=== PATIENT | male | born 1970 | race Caucasian/White ===

== ENCOUNTER 2021-12-07 22:50 | Emergency (ER) | payer OTHER ==
[~2021-12-07] VITALS: Ht 170.2 cm; Wt 59.0 kg
[2021-12-07 22:58] VITALS: BP_SYST 126
[2021-12-08] MEDS ORDERED: MORPHINE 4 MG INJ. 4 MG/ML VIAL IVP ONE (00:45)
[2021-12-08] MEDS ORDERED: NACL 0.9% 500 ML IV ONE (00:45)
[2021-12-08] MEDS ORDERED: ONDANSETRON HCL 4 MG/2 ML VIAL IVP ONE (00:45)
[2021-12-08] MEDS ORDERED: KETOROLAC TROMETHAMINE 30 MG VIAL IVP ONE (00:45)
--- NOTE | 2021-12-08 01:04 | NUR ---
# 20 gauge angiocath placed to . Use of asceptic technique. Opsite placed over site. Blood return noted. Blood for lab drawn from site. Flushed with 10 cc of normal saline. No evidence of infiltration noted. Patient tolerated well.
[2021-12-08 01:12] LABS: BASOPHILS # (AUTO) 0.2 K/uL (0.0-0.2); BASOPHILS % (AUTO) 2.3 % (0.0-2.0); EOSINOPHILS # (AUTO) 0.1 K/uL (0.0-0.4); HEMATOCRIT 46.5 % (36-54); HEMOGLOBIN 16.3 g/dL (14.0-18.0); LYMPHOCYTES # (AUTO) 1.3 K/uL (1.0-5.5); LYMPHOCYTES % (AUTO) 12.3 % (20.5-51.5); MEAN CORPUSCULAR HEMOGLOBIN 35 pg (27-31); MEAN CORPUSCULAR HGB CONC 35 % (32-36); MEAN CORPUSCULAR VOLUME 99 fL (79.0-98.0); MONOCYTES # (AUTO) 0.5 K/uL (0.0-1.0); MONOCYTES % (AUTO) 5.2 % (1.7-9.3); NEUTROPHILS # (AUTO) 8.2 K/uL (1.8-7.7); NEUTROPHILS % (AUTO) 79.2 % (40.0-70.0); PLATELET COUNT (AUTO) 281 K/uL (130-430); RED BLOOD CELL COUNT(AUTO) 4.71 MIL/uL (4.2-6.2); RED CELL DISTRIBUTION WIDTH 13.1 % (9.0-15.0); WHITE BLOOD COUNT (AUTO) 10.4 K/uL (4.8-10.8)
[2021-12-08 01:21] LABS: CALCIUM 8.4 mg/dL (8.4-11.0); CREATININE 0.91 mg/dL (0.55-1.30); POTASSIUM 3.6 mmol/L (3.5-5.1)
[2021-12-08 01:27] LABS: TOTAL BILIRUBIN 0.7 mg/dL (0.0-1.0)
--- NOTE | 2021-12-08 01:28 | NUR ---
PT PRESENTED TO THE ER DRIVEN BY SON. PT FEEL BACK ONTO A DOOR KNOB, HITTING THE DOOR KNOB WITH LOWER BACK. PT VS ARE WITHIN NORMAL LIMITS, DENIES ANY SOB, HEADACHE, DENIES NUMBNESS IN LOWER AND UPPER EXTREMETIES, HAS FULL RANGE OF MOTION IN ALL FOUR EXTREMETIES. PT IS AOX4. PT IS IN BED WITH BED LOWERED, LOCKED, AND RAILS UP
[2021-12-08] MEDS ORDERED: HYDR-3917 PO ×3 (02:18→03:28)
[2021-12-08] MEDS ORDERED: IBUP-1969 PO ×3 (02:18→03:28)
[2021-12-08 05:09] VITALS: BP_SYST 141
== END 2021-12-08 05:09 | disposition home or self-care (01) ==
LOC: SED 22:50
DX: S22.42XA Multiple fractures of ribs, left side, initial encounter for closed fracture (principal); R07.89 Other chest pain; F17.200 Nicotine dependence, unspecified, uncomplicated; X58.XXXA Exposure to other specified factors, initial encounter; Y93.89 Activity, other specified; Y92.89 Other specified places as the place of occurrence of the external cause; Y99.8 Other external cause status
CPT/HCPCS: 36415; 71046; 71100; 80053; 85025; 94010; 96361; 96374; 96375; 99284; J1885; J2270; J2405; J7030

== ENCOUNTER 2022-03-27 15:54 | Inpatient (IN) | payer OTHER ==
[~2022-03-27] VITALS: Ht 167.6 cm; Wt 56.7 kg
[~2022-03-27 15:54] MED LIST: HYDR-3917 PO; IBUP-1969 PO
[2022-03-27 16:10] VITALS: BP_SYST 161
--- NOTE | 2022-03-27 16:10 | NUR ---
Patient triaged and placed in waiting room. VSS and patient appears in no acute distress at this time. Accompanied by SELF, awaiting available bed, and MD notified of need for MSE.
[2022-03-27 17:06] LABS: BASOPHILS # (AUTO) 0.1 K/uL (0.0-0.2); BASOPHILS % (AUTO) 1.2 % (0.0-2.0); EOSINOPHILS % (AUTO) 0.1 % (0.0-4.0); HEMATOCRIT 44.6 % (36-54); HEMOGLOBIN 16.1 g/dL (14.0-18.0); LYMPHOCYTES # (AUTO) 1.4 K/uL (1.0-5.5); LYMPHOCYTES % (AUTO) 15.8 % (20.5-51.5); MEAN CORPUSCULAR HEMOGLOBIN 35 pg (27-31); MEAN CORPUSCULAR HGB CONC 36 % (32-36); MEAN CORPUSCULAR VOLUME 96 fL (79.0-98.0); MONOCYTES # (AUTO) 0.8 K/uL (0.0-1.0); MONOCYTES % (AUTO) 8.8 % (1.7-9.3); NEUTROPHILS # (AUTO) 6.4 K/uL (1.8-7.7); NEUTROPHILS % (AUTO) 74.1 % (40.0-70.0); PLATELET COUNT (AUTO) 272 K/uL (130-430); RED BLOOD CELL COUNT(AUTO) 4.63 MIL/uL (4.2-6.2); RED CELL DISTRIBUTION WIDTH 13.3 % (9.0-15.0); WHITE BLOOD COUNT (AUTO) 8.7 K/uL (4.8-10.8)
[2022-03-27 17:37] LABS: CALCIUM 7.6 mg/dL (8.4-11.0); CREATININE 1.12 mg/dL (0.55-1.30)
[2022-03-27 18:13] LABS: ALBUMIN 2.8 g/dL (3.4-4.8); TOTAL BILIRUBIN 1.5 mg/dL (0.0-1.0)
--- NOTE | 2022-03-27 21:05 | NUR ---
URINE WALKED TO LAB
--- NOTE | 2022-03-27 21:10 | NUR ---
BIBS FROM HOME WITH C/O OF ABDOMINAL PAIN X 3 DAYS WITH CONSTIPATION, NAUSEA AND VOMITING. LAST BM TODAY, STOOL HARD.
[2022-03-27] MEDS ORDERED: NACL 0.9% 1,000 ML IV ONE (21:15)
[2022-03-27 21:37] LABS: BILIRUBIN,URINE NEGATIVE (NEGATIVE); BLOOD, URINE NEGATIVE (NEGATIVE); CLARITY/URINE CLEAR (CLEAR); COLOR,URINE YELLOW (YELLOW); GLUCOSE,URINE NEGATIVE (NEGATIVE); KETONES,URINE TRACE (NEGATIVE); LEUKOCYTE ESTERASE ,URINE NEGATIVE (NEGATIVE); NITRITE, URINE NEGATIVE (NEGATIVE); PROTEIN URINE TRACE (NEGATIVE); UROBILINOGEN,URINE 0.2 (0.2-1.0)
[2022-03-27 21:58] LABS: BACTERIA,URINE None Seen /HPF (None Seen); MUCUS,URINE 1+ /LPF (None Seen); RBC,URINE 0-3 /HPF (0-3); WBC,URINE 0-3 /HPF (0-3)
[2022-03-27] MEDS ORDERED: PANTOPRAZOLE SODIUM 40 MG/VIAL (PROTONIX) IVP ONE (23:00)
[2022-03-27] MEDS ORDERED: PIPERACILLIN/TAZO 3.375 GM in NS 50 ML IV ONE (23:00)
[2022-03-27] MEDS ORDERED: MORPHINE 4 MG INJ. 4 MG/ML VIAL IVP ONE (23:00)
[2022-03-27] MEDS ORDERED: PIPERACILLIN/TAZOBACTAM 3.375 GM/VIAL (ZOSYN) IV ONE (23:41)
--- NOTE | 2022-03-28 00:15 | NUR ---
ULTRASOUND AT BEDSIDE
[2022-03-28] MEDS ORDERED: MORPHINE 2 MG/ML INJ. SYRINGE IVP PRN ×3 (01:00→07:45)
[2022-03-28] MEDS ORDERED: ONDANSETRON HCL 4 MG/2 ML VIAL IVP PRN ×2 (01:00→07:45)
[2022-03-28] MEDS: NACL 0.9% 1,000 ML IV SCH ×3 (01:10→21:59)
--- NOTE | 2022-03-28 01:51 | NUR ---
Patient will be admitted to care of DR. FLEMING. Admitted to MED SURG unit. Will go to room 107A. Belongings list completed. Complete and up to date summary report printed. SBAR report to be given at bedside with opportunity for questions.
--- NOTE | 2022-03-28 02:35 | NUR ---
pt admitted to med surg. pt aox4 able to make needs known. rr even and unlabored on ra. Pt ambulatory with brp. Skin intact. iv in LAC 22g SL. pt denies pain at this time. pt Currently npo. Bowel sounds active. Pt currently denies a hospital gown. Pt educated to use call light if he needs assistance. Will continue to monitor.
[2022-03-28 03:07] VITALS: BP_SYST 155
[2022-03-28] MEDS ORDERED: NALOXONE HCL 0.4 MG/ML AMP (NARCAN) IVP PRN ×2 (07:45)
[2022-03-28] MEDS ORDERED: POTASSIUM CHLORIDE 20 MEQ TAB.PRT.SR PO PRN (07:45)
[2022-03-28] MEDS ORDERED: MAGNESIUM SULFATE 50 ML IV PRN (07:45)
[2022-03-28] MEDS ORDERED: LORazepam 2 MG/ML VIAL IVP PRN (07:45)
[2022-03-28] MEDS ORDERED: MUPIROCIN 2% TOPICAL OINTMENT 22 GM NS PRN (07:45)
[2022-03-28] MEDS ORDERED: ACETAMINOPHEN 325 MG TABLET PO PRN ×2 (07:45)
[2022-03-28] MEDS ORDERED: DOCUSATE SODIUM 100 MG CAPSULE PO PRN (07:45)
[2022-03-28 08:34] LABS: TOTAL IRON BIND. CAPACITY 154 ug/dL (250-450)
[2022-03-28 08:35] LABS: PROTHROMBIN TIME 10.4 SECS (9.5-12.5)
--- NOTE | 2022-03-28 09:21 | NUR ---
CONSULTATION PAGED/CALLED Reason for Consultation: [] ACUTE GASTRITIS Person Who was Notified: [] VALERIE Consulting Physician: [] DR NUNN Process Tank Tender Specialty: [] GI Ordering Physician: [] DR FLEMING
[2022-03-28] MEDS: PANTOPRAZOLE SODIUM 40 MG/VIAL (PROTONIX) IVP SCH (09:28)
[2022-03-28 19:50] VITALS: BP_SYST 149
--- NOTE | 2022-03-28 19:50 | NUR ---
PM ASSESSMENT; -Pt is a/ox4, resting in bed. pt denies any chest pain,pain,sob, or any acute distress. IV site LAC patent, no s/s any infiltration noted. IVF NS @ 100ml/hr. Discussed poc and all safety measures to use call light for assistance or if experiencing any acute distress, sob, or pain, pt and verbalized understanding. Side rails x2,call light w/in reach. Cont to monitor pt.
[2022-03-29 00:25] VITALS: BP_SYST 137
--- NOTE | 2022-03-29 00:25 | NUR ---
ROUNDS; -Pt is resting in bed comfortably. Pt denies any chest pain,pain,sob,or any acute distress. IVF infusing well,no s/s any infiltration noted. Side rails x2,call light w/in reach. Cont to monitor pt.
--- NOTE | 2022-03-29 02:17 | NUR ---
ROUNDS; -Pt is asleep. No s/s any chest pain,pain,sob,or any acute distress noted. IVF infusing well,no s/s any infiltration noted. Side rails x2,call light w/in reach. Cont to monitor pt.
--- NOTE | 2022-03-29 03:00 | NUR ---
ROUNDS; -Pt awakes, and asked to stop IVF for now. Pt refused IVF this time and asked to endorse in the morning to ask md to discontinue IVF. Pt stated," I m eating good and no nausea or throw up." Pt denies any chest pain, n&V, pain,sob,or any acute distress noted. Side rails x2,call light w/in reach. Cont to monitor pt.
--- NOTE | 2022-03-29 06:39 | NUR ---
ROUNDS; -Pt is resting in bed comfortably. No s/s any chest pain,pain,sob,or any acute distress noted. IV site patent drsg cdi. Side rails x2,call light w/in reach. Will endorse to next nurse to cont care.
[2022-03-29 06:48] LABS: BASOPHILS # (AUTO) 0.1 K/uL (0.0-0.2); BASOPHILS % (AUTO) 1.1 % (0.0-2.0); EOSINOPHILS # (AUTO) 0.1 K/uL (0.0-0.4); EOSINOPHILS % (AUTO) 1.4 % (0.0-4.0); HEMATOCRIT 39.1 % (36-54); HEMOGLOBIN 13.7 g/dL (14.0-18.0); LYMPHOCYTES # (AUTO) 1.1 K/uL (1.0-5.5); LYMPHOCYTES % (AUTO) 18.6 % (20.5-51.5); MEAN CORPUSCULAR HEMOGLOBIN 34 pg (27-31); MEAN CORPUSCULAR HGB CONC 35 % (32-36); MEAN CORPUSCULAR VOLUME 96 fL (79.0-98.0); MONOCYTES # (AUTO) 0.5 K/uL (0.0-1.0); MONOCYTES % (AUTO) 8.9 % (1.7-9.3); NEUTROPHILS # (AUTO) 4.1 K/uL (1.8-7.7); PLATELET COUNT (AUTO) 189 K/uL (130-430); RED BLOOD CELL COUNT(AUTO) 4.09 MIL/uL (4.2-6.2); RED CELL DISTRIBUTION WIDTH 13.3 % (9.0-15.0); WHITE BLOOD COUNT (AUTO) 5.9 K/uL (4.8-10.8)
[2022-03-29 07:29] LABS: CALCIUM 8.3 mg/dL (8.4-11.0); CREATININE 0.91 mg/dL (0.55-1.30)
[2022-03-29] MEDS: PANTOPRAZOLE SODIUM 40 MG/VIAL (PROTONIX) IVP SCH (09:51)
[2022-03-29] MEDS: NACL 0.9% 1,000 ML IV SCH ×2 (09:51→15:42)
[2022-03-29 11:08] LABS: HEPATITIS A AB, IgM Negative (Negative); HEPATITIS B CORE AB, IgM Negative (Negative); HEPATITIS B SURFACE AG Negative (Negative)
[2022-03-29 11:30] VITALS: BP_SYST 131
[2022-03-29 12:51] LABS: FERRITIN 931 ng/mL (30-400)
[2022-03-29 15:30] VITALS: BP_SYST 123
[2022-03-29] MEDS ORDERED: PRO40 PO (15:50)
[2022-03-29 16:38] VITALS: BP_SYST 120
--- NOTE | 2022-03-29 16:55 | NUR ---
Patient has had little to know issues since he arrived here yesterday. Patient feels well and has consulted with MD regarding discharge. All questions that he had were answered by GI MD and attending and followed up with RN. No signs or symptoms of discomfort or distress upon discharge at this time.
[2022-03-29 16:57] LABS: BILIRUBIN,DIRECT 0.4 mg/dL (0.0-0.3); TOTAL BILIRUBIN 0.8 mg/dL (0.0-1.0)
[2022-03-29 16:58] LABS: ALBUMIN 2.7 g/dL (3.4-4.8)
[2022-03-29 16:59] VITALS: BP_SYST 122
[2022-03-29 17:09] VITALS: BP_SYST 122
== END 2022-03-29 17:30 | disposition home or self-care (01) | DRG 433 ==
LOC: SED 15:54 → SMU 03-28 00:49
PROVIDERS: ADMIT Family Medicine; ATTEND Family Medicine
DX: K70.10 Alcoholic hepatitis without ascites (principal); E87.1 Hypo-osmolality and hyponatremia; K29.20 Alcoholic gastritis without bleeding; F10.20 Alcohol dependence, uncomplicated; Y90.9 Presence of alcohol in blood, level not specified; E87.8 Other disorders of electrolyte and fluid balance, not elsewhere classified; Z20.822 Contact with and (suspected) exposure to COVID-19; Z79.1 Long term (current) use of non-steroidal anti-inflammatories (NSAID); Z79.899 Other long term (current) drug therapy; Z79.891 Long term (current) use of opiate analgesic
CPT/HCPCS: 36415; 76705; 80048; 80053; 80074; 80076; 81000; 82728; 83540; 83550; 83690; 83735; 85025; 85610-TC; 96361; 96365; 96375; 99285; C9113; J2060; J2270; J2543; J7030